=== PATIENT | female | born 2000 | race Caucasian/White ===

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

== ENCOUNTER 2021-06-02 21:50 | Emergency (ER) | payer OTHER ==
[~2021-06-02] VITALS: Ht 162.6 cm; Wt 108.9 kg
[2021-06-02] MEDS ORDERED: IBUPROFEN 800 MG TAB PO ONE (23:00)
[2021-06-02] MEDS ORDERED: GUAIFENESIN-CODEINE 5 ML SYRUP PO ONE (23:00)
[2021-06-02] MEDS ORDERED: DEXAMETHASONE 4 MG TAB PO ONE (23:00)
[2021-06-02] MEDS ORDERED: DEXA6TAB7 PO (23:02)
[2021-06-02] MEDS ORDERED: IBUP-1552 PO (23:02)
[2021-06-02 23:50] VITALS: BP 132/72
== END 2021-06-02 23:52 | disposition home or self-care (01) ==
LOC: EDH 21:50
DX: J32.0 Chronic maxillary sinusitis (principal); E66.9 Obesity, unspecified; Z79.1 Long term (current) use of non-steroidal anti-inflammatories (NSAID); Z79.52 Long term (current) use of systemic steroids; Z68.52 Body mass index [BMI] pediatric, 5th percentile to less than 85th percentile for age
CPT/HCPCS: 99284; J8540